=== PATIENT | female | born 1985 | race Two or more races ===

== ENCOUNTER 2021-12-21 19:51 | Observation (INO) | payer MEDICAID, OTHER ==
[~2021-12-21] VITALS: Ht 154.9 cm; Wt 97.5 kg
[2021-12-21] MEDS ORDERED: ACETAMINOPHEN 325 MG TAB PO ONE (21:00)
[2021-12-21 21:30] LABS: Urine Bacteria FEW /hpf (None Seen); Urine Blood Negative /uL (Negative); Urine Specific Gravity 1.028 (1.001-1.035); Urine WBC 11 /hpf (0 - 5)
[2021-12-21 21:41] LABS: Albumin 2.1 g/dL (3.4-5.0); Potassium 3.6 mmol/L (3.5-5.1)
[2021-12-21 21:45] LABS: BUN/Creatinine Ratio 12.8; Bilirubin, Total 0.2 mg/dL (0.2-1.0); Total Protein 6.4 g/dL (6.4-8.2); Uric Acid 2.8 mg/dL (2.6-6.0)
[2021-12-21 21:46] LABS: Alcohol, Urine < 3.0 mg/dL (0-10); Amphetamine Screen, Urine NEGATIVE (NEGATIVE); Barbiturate Scree,Urine NEGATIVE (NEGATIVE); Benzodiazephine Screen, Urine NEGATIVE (NEGATIVE); Cannabinoid Screen, Urine NEGATIVE (NEGATIVE); Cocaine Screen, Urine NEGATIVE (NEGATIVE); Opiate Scree,Urine NEGATIVE (NEGATIVE); Phencyclidine Screen, Urine NEGATIVE (NEGATIVE)
[2021-12-21 21:54] LABS: Protein, Urine 26.8 mg/dL (0.0-11.9)
== END 2021-12-21 22:21 | disposition home or self-care (01) ==
LOC: LDRP 19:51
PROVIDERS: ADMIT Obstetrics & Gynecology; ATTEND Obstetrics & Gynecology
DX: O26.893 Other specified pregnancy related conditions, third trimester (principal); R10.11 Right upper quadrant pain; O62.9 Abnormality of forces of labor, unspecified; O12.03 Gestational edema, third trimester; Z3A.36 36 weeks gestation of pregnancy; Z98.891 History of uterine scar from previous surgery; Z79.899 Other long term (current) drug therapy
CPT/HCPCS: 36415; 59025; 80053; 80307; 81001; 81002; 82570; 84156; 84550; G0378